=== PATIENT | female | born 1935 | race American Indian/Alaskan Native ===

== ENCOUNTER 2017-02-09 10:56 | Inpatient (IN) | payer MEDICARE ==
[2017-02-09 11:11] VITALS: BMI 22.8
[2017-02-09 12:43] LABS: BASO % 0.2 % (0.0-2.0); EOS % 0.1 % (0.0-4.0); HEMOGLOBIN 14.2 g/dL (11.0-16.0); LYMPH % 5.8 % (20.0-40.0); MEAN CELL VOLUME 91.1 fL (81.0-99.0); MEAN CORPUSCULAR HGB CONC 32.9 g/dL (33.0-37.0); MEAN PLATELET VOLUME 9.2 fL (7.2-11.7); MONO # 1.8 K/uL (0.0-0.8); MONO % 10.8 % (0.0-10.0); NEUT % 83.1 % (50.0-75.0); NRBC % 0.1 % (0.0-2.0); PLATELET COUNT 183 K/uL (130-400); RBC 4.73 Mil/uL (3.80-5.20); RED CELL DISTRIBUTION WIDTH 15.3 % (11.5-14.5); WHITE BLOOD COUNT 16.8 K/uL (4.8-10.8)
[2017-02-09 12:56] LABS: ALBUMIN 3.4 g/dL (3.5-5.0); CALCIUM 8.2 mg/dl (8.6-10.4)
[2017-02-09 13:01] LABS: BANDS 1 % (0-2); LYMPHOCYTE 4 % (20-40); MONOCYTE 11 % (0-10); NEUTROPHIL 84 % (50-75); TOTAL CELLS COUNTED 100
[2017-02-09 13:02] LABS: ANISOCYTOSIS SLIGHT; PLATELET ESTIMATE NORMAL (NORMAL); POIKILOCYTOSIS SLIGHT
[2017-02-09 13:03] LABS: LARGE PLATELETS PRESENT; OVALOCYTES SLIGHT
[2017-02-09 13:04] LABS: BURR CELLS SLIGHT; POLYCHROMIC SLIGHT
[2017-02-09 13:10] LABS: SQUAMOUS EPITHIAL 9 /hpf (0-5); URINE BACTERIA OCC (<OCC); URINE BILIRUBIN NEGATIVE (NEGATIVE); URINE BLOOD 1+ (NEGATIVE); URINE CLARITY Hazy (Clear); URINE COLOR Amber (YELLOW); URINE GLUCOSE (UA) NORMAL (Normal); URINE HYALINE CAST 0-2 /lpf (0-2); URINE LEUKOCYTE ESTERASE 2+ Leu/uL (Negative); URINE NITRATE NEGATIVE (NEGATIVE); URINE PROTEIN 2+ mg/dL (NEGATIVE); URINE UROBILINOGEN NORMAL mg/dL (0.2-1.0); WBC CLUMPS FEW /hpf
[2017-02-09] MEDS ORDERED: cefTRIAXone IV 1 gm in Dextros 50 ML IVPB ONE (14:11)
--- NOTE | 2017-02-09 14:33 | C.PDOC ---
History Of Present Illness Patient is an 81 y/o female who presents to the ED with a complaint of increasing weakness in the right leg for the past 3-4 days. Patient denies fall , trauma to area, fever, cough, CP, SOB, or recent travel. No other physical complaints at this time. Time Seen by Provider: 02/09/17 11:37 Chief Complaint (Nursing): Abnormal Skin Integrity History Per: Patient, Family History/Exam Limitations: no limitations Onset/Duration Of Symptoms: Days (3-4 days) Current Symptoms Are (Timing): Still Present Recent travel outside of the [place]: No Past Medical History Reviewed: Historical Data, Nursing Documentation, Vital Signs Vital Signs: Last Vital Signs Temp 99.5 F 02/09/17 15:59 Pulse 97 H 02/09/17 15:59 Resp 18 02/09/17 15:59 BP 95/60 L 02/09/17 15:59 Pulse Ox 99 02/09/17 15:59 - Medical History PMH: Arthritis, CHF, HTN Surgical History: No Surg Hx Family History: States: No Known Family Hx - Social History Hx Alcohol Use: No Hx Substance Use: No - Immunization History Hx Tetanus Toxoid Vaccination: No Hx Influenza Vaccination: No Hx Pneumococcal Vaccination: No Review Of Systems Constitutional: Positive for: Weakness (to right leg ). Negative for: Fever Cardiovascular: Negative for: Chest Pain Respiratory: Negative for: Cough, Shortness of Breath Physical Exam - Physical Exam Appears: Well, Non-toxic, No Acute Distress Skin: Normal Color, Warm, Dry Head: Atraumatic, Normacephalic Oral Mucosa: Dry Chest: Symmetrical Cardiovascular: Rhythm Irregular (irregularly irregular), No Murmur Respiratory: Normal Breath Sounds, No Rales, No Rhonchi, No Wheezing Gastrointestinal/Abdominal: Soft, No Tenderness, No Distention Extremity: Other (superficial healing ulcer to right leg; no sign of erythema or infection) Neurological/Psych: Oriented x3, Normal Speech, Normal Cognition ED Course And Treatment - Laboratory Results Result Diagrams: 02/09/17 12:40 02/09/17 12:40 ECG: Interpreted By Me, Viewed By Me ECG Rhythm: Atrial Fibrillation Rate From EC (bpm) O2 Sat by Pulse Oximetry: 100 (room air) Pulse Ox Interpretation: Normal - Physician Consult Information Time Consulting Physician Contacted: 13:42 Physician Contacted: Anil Knowles Outcome Of Conversation: agrees to admit patient for UTI and dehydration Disposition - Disposition Disposition: HOME/ ROUTINE Disposition Time: 13:15 Condition: STABLE - Clinical Impression Clinical Impression: UTI (urinary tract infection), Weakness - Scribe Statement The provider has reviewed the documentation as recorded by the Scribe Yumiko Herrmann All medical record entries made by the Scribe were at my direction and personally dictated by me. I have reviewed the chart and agree that the record accurately reflects my personal performance of the history, physical exam, medical decision making, and the department course for this patient. I have also personally directed, reviewed, and agree with the discharge instructions and disposition.
--- NOTE | 2017-02-09 15:27 | RAD ---
PROCEDURE: Radiographs of the right tibia and fibula. HISTORY: r/o fx COMPARISON: None available. TECHNIQUE: Frontal and lateral views obtained. FINDINGS: BONES: No fracture or destructive lesion. JOINT SPACES: Moderate osteoarthritic changes. Cartilage calcification noted at the knee and ankle joints. OTHER FINDINGS: Diffuse vascular calcification. IMPRESSION: No evidence of acute fracture or destructive bony lesion.
--- NOTE | 2017-02-09 16:12 | RAD ---
PROCEDURE: CHEST RADIOGRAPH, 1 VIEW HISTORY: r/o infiltrate COMPARISON: None available. FINDINGS: LUNGS: No evidence of focal infiltrate or consolidation in the lungs PLEURA: No pneumothorax or pleural fluid seen. CARDIOVASCULAR: Mild cardiomegaly is noted. Single wire left-sided pacer is seen in place OSSEOUS STRUCTURES: No significant abnormalities. VISUALIZED UPPER ABDOMEN: Normal. OTHER FINDINGS: None. IMPRESSION: No evidence of acute pulmonary disease. Mild cardiomegaly.
--- NOTE | 2017-02-09 16:57 | RAD ---
PROCEDURE: Radiographs of the pelvis. HISTORY: r/o fx COMPARISON: None. FINDINGS: BONES: Pelvic Bones: Unremarkable. Hips: Grossly unremarkable. JOINTS: Sacroiliac Joints: Unremarkable. Pubic Symphysis: Unremarkable. OTHER FINDINGS: None. IMPRESSION: No definite evidence of acute displaced fracture in the pelvis.
[2017-02-09] MEDS ORDERED: Pneumococcal 23-Valent Vaccine IM ONE (21:32)
[2017-02-09] MEDS ORDERED: Influenza Vaccine 60 mcg/0.5 mL SYR (4YR UP) IM ONE (21:33)
[2017-02-10] MEDS ORDERED: Ciprofloxacin 400mg/200ml D5W 400 MG/200 ML BAG IVPB SCH (10:00)
--- NOTE | 2017-02-10 12:59 | CP.PCM.CON ---
History of Present Illness - History of Present Illness History of Present Illness: Patient is an 81 y/o female who presents to the ED with a complaint of increasing weakness in the right leg for the past 3-4 days. Patient denies fall , trauma to area, fever, cough, CP, SOB, or recent travel. No other physical complaints at this time. has pain and decreased rom right leg - Medical History PMH: Arthritis, CHF, HTN Review of Systems - Review of Systems All systems: reviewed and no additional remarkable complaints except - Constitutional Constitutional: As Per HPI - EENT Eyes: absent: As Per HPI, Blind Spots, Blurred Vision, Change in Vision, Decreased Night Vision, Diplopia, Discharge, Dry Eye, Exophthalmos, Floaters, Irritation, Itchy Eyes, Loss of Peripheral Vision, Pain, Photophobia, Requires Corrective Lenses, Sees Flashes, Spots in Vision, Tunnel Vision, Other Visual Disturbances, Loss of Vision, Other Ears: absent: As Per HPI, Decreased Hearing, Ear Discharge, Ear Pain, Tinnitus, Abnormal Hearing, Disequilibrium, Dizziness, Other Nose/Mouth/Throat: absent: As Per HPI, Epistaxis, Nasal Congestion, Nasal Discharge, Nasal Obstruction, Nasal Trauma, Nose Pain, Post Nasal Drip, Sinus Pain, Sinus Pressure, Bleeding Gums, Change in Voice, Dental Pain, Dry Mouth, Dysphagia, Halitosis, Hoarsness, Lip Swelling, Mouth Lesions, Mouth Pain, Odynophagia, Sore Throat, Throat Swelling, Tongue Swelling, Facial Pain, Neck Pain, Neck Mass, Other - Breasts Breasts: absent: As Per HPI, Change in Shape, Mass, Pain, Nipple Discharge, Nipple Inversion, Skin Changes, Swelling, Other - Cardiovascular Cardiovascular: absent: As Per HPI, Acrocyanosis, Chest Pain, Chest Pain at Rest , Chest Pain with Activity, Claudication, Diaphoresis, Dyspnea, Dyspnea on Exertion, Edema, Irregular Heart Rhythm, Pain Radiating to Arm/Neck/Jaw, Leg Edema, Leg Ulcers, Lightheadedness, Orthopnea, Palpitations, Paroxysmal Nocturnal Dyspnea, Pedal Edema, Radiating Pain, Rapid Heart Rate, Slow Heart Rate, Syncope, Other - Respiratory Respiratory: absent: As Per HPI, Cough, Dyspnea, Hemoptysis, Dyspnea on Exertion , Wheezing, Snoring, Stridor, Pain on Inspiration, Chest Congestion, Excessive Mucous Production, Change in Mucous Color, Pain with Coughing, Other - Gastrointestinal Gastrointestinal: absent: As Per HPI, Abdominal Pain, Belching, Bloating, Change in Bowel Habits, Change in Stool Character, Coffee Ground Emesis, Constipation, Cramping, Diarrhea, Dyspepsia, Dysphagia, Early Satiety, Excessive Flatus, Fecal Incontinence, Heartburn, Hematemesis, Hematochezia, Loose Stools, Melena, Nausea, Odynophagia, Temesmus, Vomiting, Other - Genitourinary Genitourinary: absent: As Per HPI, Change in Urinary Stream, Difficulty Urinating, Dysuria, Flank Pain, Hematuria, Pyuria, Nocturia, Urinary Incontinence, Urinary Frequency, Urinary Hesitance, Urinary Urgency, Voiding Freq/Small Amts, Freq UTI, Hx Renal/Bladder Calculi, Hx /Renal Surgery, Bladder Distension, Other - Menstruation Menstruation: absent: As Per HPI, Amenorrhea, Amenorrhea/ Control, Currently Menstual, Cycle <21 Days, Cycle >35 Days, Cycle Variable, Menses 1-7 Days, Menses >/= 8 Days, Menses Variable, Cycle > 4 Weeks Between, No Menses for 6 Months, Heavy Menses, Light Menses, Normal Menses, Spotting Between Cycles , S/P Hysterectomy, Menopausal, Post Menopausal, Premenarche, Abnormal Vaginal Bleeding, Dysmenorrhea, Other - Musculoskeletal Musculoskeletal: As Per HPI, Abnormal Gait, Muscle Weakness, Stiffness - Integumentary Integumentary: absent: As Per HPI, Acne, Alopecia, Bleeding Lesions, Change in Hair, Change in Nails, Change in Pigmentation, Changing Lesions, Dry Skin, Erythema, Furuncle, Hirsutism, Lesions, New Lesions, Non-Healing Lesions, Photosensitivity, Pruritus, Rash, Skin Pain, Skin Ulcer, Sores, Striae, Swelling , Unusual Bruising, Wounds, Jaundice, Other - Neurological Neurological: absent: As Per HPI, Abnormal Gait, Abnormal Hearing, Abnormal Movements, Abnormal Speech, Behavioral Changes, Burning Sensations, Confusion, Convulsions, Disequilibrium, Dizziness, Numbness, Focal Weakness, Frequent Falls , Headaches, Lack of Coordination, Loss of Vision, Memory Loss, Paresthesias, Radicular Pain, Restless Legs, Sensory Deficit, Syncope, Tingling, Tremor, Vertigo, Weakness, Other Visual Disturbances, Other - Psychiatric Psychiatric: absent: As Per HPI, Abnormal Sleep Pattern, Anhedonia, Anxiety, Auditory Hallucinations, Behavioral Changes, Change in Appetite, Change in Libido, Confusion, Depression, Difficulty Concentrating, Hallucinations, Homicidal Ideation, Hopelessness, Irritability, Memory Loss, Mood Swings, Panic Attacks, Paranoia, Suicidal Ideation, Visual Hallucinations, Tactile Hallucinations, Other - Endocrine Endocrine: absent: As Per HPI, Change in Body Appearance, Change in Libido, Cold Intolorance, Deepening of Voice, Excessive Sweating, Fatigue, Flushing, Heat Intolorance, Increase in Ring/Shoe/Hat Size, Palpitations, Polydipsia, Polyphagia, Polyuria, Other - Hematologic/Lymphatic Hematologic: absent: As Per HPI, Easy Bleeding, Easy Bruising, Lymphadenopathy, Other Past Patient History - Past Medical History & Family History Past Medical History?: Yes - Past Social History Smoking Status: Never Smoked - CARDIAC Hx Congestive Heart Failure: Yes Hx Hypertension: Yes Hx Internal Defibrillator: Yes - PULMONARY Hx Respiratory Disorders: No - NEUROLOGICAL Hx Dementia: Yes - HEENT Hx Cataracts: Yes - RENAL Hx Chronic Kidney Disease: No - ENDOCRINE/METABOLIC Hx Endocrine Disorders: No - HEMATOLOGICAL/ONCOLOGICAL Hx Cancer: Yes (Breast 25 yrs ago) - INTEGUMENTARY Hx Dermatological Problems: No - MUSCULOSKELETAL/RHEUMATOLOGICAL Hx Arthritis: Yes Hx Falls: Yes Hx Fractures: Yes (leg 30 yrs ago) - GASTROINTESTINAL Hx Bowel Surgery: Yes (2006 bowel obstruction) - GENITOURINARY/GYNECOLOGICAL Hx Incontinence: Yes - PSYCHIATRIC Hx Substance Use: No - SURGICAL HISTORY Hx Open Heart Surgery: Yes (defibrillator implant) Other/Comment: bowel obstruction - ANESTHESIA Hx Anesthesia: Yes Hx Anesthesia Reactions: No Meds Allergies/Adverse Reactions: Allergies Allergy/AdvReac Type Severity Reaction Status Date / Time No Known Allergies Allergy Verified 02/09/17 11:04 - Medications Medications: Current Medications Carvedilol (Coreg) 3.125 mg PO BID [facility] Last Admin: 02/09/17 19:42 Dose: 3.125 mg Celecoxib (Celebrex) 100 mg PO DAILY PRN PRN Reason: Pain, moderate (4-7) Digoxin (Lanoxin) 0.125 mg PO DAILY@1800 [facility] Donepezil HCl (Aricept) 10 mg PO HS [facility] Last Admin: 02/09/17 22:25 Dose: 10 mg Furosemide (Lasix) 80 mg PO DAILY [facility] Cefepime HCl (Maxipime Iv 1 Gm Premix) 1 gm in 50 mls @ 100 mls/hr IVPB Q12H [facility] Losartan Potassium (Cozaar) 25 mg PO DAILY [facility] Rivaroxaban (Xarelto) 10 mg PO DAILY [facility] Last Admin: 02/10/17 11:00 Dose: 10 mg Physical Exam - Constitutional Appears: Non-toxic, Chronically Ill - Head Exam Head Exam: NORMOCEPHALIC - Eye Exam Eye Exam: PERRL. absent: Scleral icterus - ENT Exam ENT Exam: Mucous Membranes Dry - Neck Exam Neck exam: Negative for: Lymphadenopathy - Respiratory Exam Respiratory Exam: Decreased Breath Sounds, Clear to Auscultation Bilateral - Cardiovascular Exam Cardiovascular Exam: REGULAR RHYTHM, +S1, +S2 - GI/Abdominal Exam GI & Abdominal Exam: Diminished Bowel Sounds, Soft. absent: Tenderness - Rectal Exam Rectal Exam: Deferred - Exam Exam: NORMAL INSPECTION - Extremities Exam Extremities exam: Positive for: pedal pulses present. Negative for: calf tenderness, full ROM, normal inspection, pedal edema - Back Exam Back exam: absent: CVA tenderness (L), CVA tenderness (R) - Neurological Exam Neurological exam: Alert, CN II-XII Intact, Oriented x3, Reflexes Normal - Psychiatric Exam Psychiatric exam: Normal Mood Results - Vital Signs Recent Vital Signs: Last Vital Signs Temp 97.6 F 02/10/17 08:00 Pulse 68 02/10/17 08:00 Resp 20 02/10/17 08:00 BP 94/64 L 02/10/17 08:00 Pulse Ox 96 02/10/17 08:00 - Labs Result Diagrams: 02/09/17 12:40 02/09/17 12:40 Labs: Laboratory Results - last 24 hr 02/09/17 02/09/17 02/09/17 12:40 12:40 12:58 Neutrophils % (Manual) 84 H Band Neutrophils % 1 Lymphocytes % (Manual) 4 L Monocytes % (Manual) 11 H Platelet Estimate Normal Large Platelets Present Polychromasia Slight Poikilocytosis (manual Slight Anisocytosis (manual) Slight Ovalocytes Slight Gilberto Cells Slight Sodium 133 Potassium 5.2 Chloride 101 Carbon Dioxide 22 Anion Gap 14 BUN 25 H Creatinine 1.1 Est GFR ( Amer) 58 Est GFR (Non-Af Amer) 48 Random Glucose 103 Calcium 8.2 L Total Bilirubin 2.7 H AST 61 H ALT 22 Alkaline Phosphatase 57 Total Creatine Kinase 281 H Total Protein 6.8 Albumin 3.4 L Globulin 3.4 Albumin/Globulin Ratio 1.0 Urine Color Татьяна Urine Clarity Hazy Urine pH 5.0 Ur Specific [place] 1.017 Urine Protein 2+ H Urine Glucose (UA) Normal Urine Ketones Negative Urine Blood 1+ H Urine Nitrate Negative Urine Bilirubin Negative Urine Urobilinogen Normal Ur Leukocyte Esterase 2+ H Urine WBC (Auto) 30 H Urine RBC (Auto) 2 Urine WBC Clumps (Auto) Few H Ur Squamous Epith Cells 9 H Urine Bacteria Occ H Hyaline Casts 0-2 Assessment & Plan (1) UTI (urinary tract infection) Status: Acute (2) Weakness Status: Acute - Assessment and Plan (Free Text) Assessment: cont iv antibiotics dr lewis consult
[2017-02-10] MEDS: Cefepime IV 1 gm in Dextrose 1 GM/50 ML BAG IVPB SCH (14:00)
[2017-02-10] MEDS: Digoxin 125 mcg (0.125 mg) Tab PO SCH (17:58)
--- NOTE | 2017-02-10 22:22 | HP ---
HISTORY OF PRESENT ILLNESS: This is an 81-year-old female presented to the ER with the complaint of increasing weakness in the right leg for 3 to 4 days because of severe pain in the right leg, more so in the right knee. Denies any fall or trauma. She does have a history of congestive heart failure, dilated cardiomyopathy, ICD implantation, and being followed by myself and Dr. Luciano. She was in usual state of health until 2 days ago. MEDICATIONS: At home, include Xarelto 10 mg p.o. once a day, Coreg 3.125 twice a day, Cozaar 25 mg one a day, Lanoxin 0.125 one a day, Lasix 80 mg once a day. PERSONAL HISTORY: Does not smoke, does not drink. She used to drink alcohol in the past, but has not been drinking alcohol for more than 10 years. PAST MEDICAL HISTORY: History of CHF, otherwise unremarkable. ICD implantation. ALLERGIES: DENIED. FAMILY HISTORY: Negative for premature coronary artery disease. Father in his 80's because of CHF. REVIEW OF SYSTEMS: Generalized weakness as noted. Essentially bed to chair and wheelchair confined. Moves around with lot of difficulties in the house. No headache, no dizziness, no syncope, no TIAs, no CVAs. History of loss of memory. No chest pain. No ankle edema since she is on Lasix. Sleeps on 3 pillows. No cough. No hemoptysis. No hematemesis. No melena. For the past 2 days, has noted increasing frequency of urination. Found to have UTI in the ER. No history of depression. PHYSICAL EXAMINATION: GENERAL: An elderly female in no acute distress. Appears chronically sick. VITAL SIGNS: She is 5 feet 8 inches and weight is 150 pounds. Blood pressure is 95/60, heart rate of 98, respiratory rate of 20, afebrile. HEENT: No neck vein distension. Mouth, no exudate. NECK: Supple. ICD is noted in the left infraclavicular area. LUNGS: Decreased air entry in the bases, otherwise unremarkable. HEART: PMI is not localized. S1 and S2 is distant. Grade 2/6 early systolic murmur in mitral area. ABDOMEN: Soft. EXTREMITIES: Unremarkable except swelling of the right knee. Tenderness is noted on the motion of the right knee. No focal sign. LABORATORY DATA: UTI is noted. White count at 16,000. ASSESSMENT: An 81-year-old female with history of congestive cardiomyopathy, has presented with weakness of the right leg and right knee pain. Urinary tract infection and possible sepsis. PLAN: IV antibiotic, ID consultation. Also needs orthopedic consultation. Apparently, x-rays were said to be unremarkable. We will follow. Anil Knowles MD
[2017-02-11] MEDS: Cefepime IV 1 gm in Dextrose 1 GM/50 ML BAG IVPB SCH ×2 (01:02→12:52)
[2017-02-11 07:28] LABS: BASO % 0.3 % (0.0-2.0); EOS # 0.1 K/uL (0.0-0.7); EOS % 1.1 % (0.0-4.0); HEMOGLOBIN 12.6 g/dL (11.0-16.0); MEAN CELL VOLUME 90.4 fL (81.0-99.0); MEAN CORPUSCULAR HEMOGLOBIN 30.5 pg (27.0-31.0); MEAN CORPUSCULAR HGB CONC 33.8 g/dL (33.0-37.0); MEAN PLATELET VOLUME 9.1 fL (7.2-11.7); MONO % 11.5 % (0.0-10.0); NEUT # 6.8 K/uL (1.8-7.0); NEUT % 76.1 % (50.0-75.0); RBC 4.14 Mil/uL (3.80-5.20); RED CELL DISTRIBUTION WIDTH 14.9 % (11.5-14.5)
[2017-02-11 08:17] LABS: ALBUMIN 3.2 g/dL (3.5-5.0); CALCIUM 8.1 mg/dl (8.6-10.4); URIC ACID 9.1 mg/dL (2.2-7.5)
[2017-02-11] MEDS: Digoxin 125 mcg (0.125 mg) Tab PO SCH (18:49)
[2017-02-12] MEDS: Cefepime IV 1 gm in Dextrose 1 GM/50 ML BAG IVPB SCH ×2 (00:20→12:15)
--- NOTE | 2017-02-12 10:32 | VASCLAB ---
PROCEDURE: Lower Extremity Venous Duplex Exam. HISTORY: weakness PRIORS: None. TECHNIQUE: Bilateral common femoral, femoral, popliteal and posterior tibial, peroneal and great saphenous veins were evaluated. Flow was assessed with color Doppler, compressibility, assessment of phasic flow and augmentation response. Report prepared by Cyril Sales, KRISTEN, RVT FINDINGS: RIGHT: 1. Common Femoral Vein: 1.1. Compressibility - Fully compressible: Thrombus - None : Flow - Phasic: Augmentation -Normal: Reflux - None. 2. Femoral Vein: 2.1. Compressibility - Fully compressible: Thrombus - None : Flow - Phasic: Augmentation -Normal: Reflux - None. 3. Popliteal Vein: 3.1. Compressibility - Fully compressible: Thrombus - None : Flow - Phasic: Augmentation -Normal: Reflux - None. 4. Posterior Tibial Vein: 4.1. Compressibility - Fully compressible: Thrombus - None: Flow - Phasic: Augmentation -Normal: Reflux - None. 5. Peroneal Vein: 5.1. Compressibility - Fully compressible: Thrombus - None: Flow - Phasic: Augmentation -Normal: Reflux - None. 6. Great Saphenous Vein: 6.1. Compressibility - Fully compressible: Thrombus - None: Flow - Phasic: Augmentation - Normal: Reflux - None. LEFT: 1. Common Femoral Vein: 1.1. Compressibility - Fully compressible: Thrombus - None: Flow - Phasic: Augmentation -Normal: Reflux - None. 2. Femoral Vein: 2.1. Compressibility - Fully compressible: Thrombus - None: Flow - Phasic: Augmentation -Normal: Reflux - None. 3. Popliteal Vein: 3.1. Compressibility - Fully compressible: Thrombus - None : Flow - Phasic: Augmentation -Normal: Reflux - None. 4. Posterior Tibial Vein: 4.1. Compressibility - Fully compressible: Thrombus - None: Flow - Phasic: Augmentation -Normal: Reflux - None. 5. Peroneal Vein: 5.1. Compressibility - Fully compressible: Thrombus - None: Flow - Phasic: Augmentation -Normal: Reflux - None. 6. Great Saphenous Vein: 6.1. Compressibility - Fully compressible: Thrombus - None: Flow - Phasic: Augmentation - Normal: Reflux - None. OTHER FINDINGS: Right: None significant. Left: None significant. IMPRESSION: Right: No evidence of deep or superficial vein thrombosis of the right lower extremity. Normal valve function noted of the right side. Left: No evidence of deep or superficial vein thrombosis of the left lower extremity. Normal valve function noted of the left side.
--- NOTE | 2017-02-12 11:21 | CON ---
DATE: HISTORY OF PRESENT ILLNESS: The patient is admitted by Dr. Anil Knowles with a diagnoses of weakness and UTI. The patient is complaining of pain and painful limitation of range of motion of the right knee. She gives history of arthritis in the past. Recently, she had a fall about 2 days ago. Examination reveals 1+ swelling of the knee. The range of motion of the knee is painful in the extremes. The patient can do a straight leg raising test and can flex up to 100 degrees and tenderness over the medial, lateral and patellofemoral joints noted. Patellofemoral crepitus and tenderness noted. Range of motion of the knee is painful in the extremes. No evidence of ligamentous instability noted. X-rays of the right tibia and fibula including the right knee and ankle revealed evidence of degenerative joint disease with narrowing of the medial and lateral joint spaces. Some calcification over the superior pole of the patella seen. Arterial calcification is also seen. DIAGNOSES: Contusion of the knee, osteoarthritis of the knee. We will follow the patient. At this time, we will do the following. 1. Lidoderm patches to be applied up to 12 hours a day. 2. We will start physical therapy including ambulation, weightbearing, moist heat. We will follow the patient. If she develops any significant effusion, we will consider aspirating the knee. At this point, the patient has minimal effusion. Emile Diane MD
--- NOTE | 2017-02-12 11:49 | VASCLAB ---
STUDY DESCRIPTION: HISTORY: weakness PRIORS: None. TECHNIQUE: Pulse volume recording waveforms and segmental pressures of bilateral lower extremities at multiple levels were obtained. Ankle Brachial Indices (ABIs) were calculated. Report prepared by KRISTEN Tong, RVT RIGHT LOWER EXTREMITY: * Brachial artery: Pressure - 111 mmHg. * High thigh: Pressure - mmHg: Ratio - : PVR waveform - Reduced * Low thigh: Pressure - mmHg: Ratio - PVR waveform: Reduced * Calf: Pressure - mmHg: Ratio - PVR waveform: Reduced * Posterior tibial Artery: Pressure - 91 mmHg: Ratio - 0.82 PVR waveform: Reduced * Dorsalis pedis Artery: Pressure - 109 mmHg: Ratio - 0.98 PVR waveform: Reduced * Great toe: Pressure - mmHg: Ratio - PVR waveform: Ankle brachial index (JOSEF): 0.98 LEFT LOWER EXTREMITY: * Brachial artery: Pressure - 96 mmHg. * High thigh: Pressure - mmHg: Ratio - : PVR waveform - Pulsatile * Low thigh: Pressure - mmHg: Ratio - PVR waveform: Pulsatile * Calf: Pressure - mmHg: Ratio - PVR waveform: Pulsatile * Posterior tibial Artery: Pressure - 220 mmHg: Ratio - NC PVR waveform: Pulsatile * Dorsalis pedis Artery: Pressure - 220 mmHg: Ratio - NC PVR waveform: Pulsatile * Great toe: Pressure - mmHg: Ratio - PVR waveform: Ankle brachial index (JOSEF): NC OTHER FINDINGS: Right: Left: IMPRESSION: Right: There was no evidence of hemodynamically significant arterial insufficiency in the right lower extremity. Left: The ankle pressure index of the left lower extremity is non-diagnostic due to possible arterial wall calcifications.
--- NOTE | 2017-02-12 12:45 | CARD ---
APPROVED REPORT EKG Measurement Heart [id number] <Conclusion> Atrial fibrillation Left anterior fascicular block Possible Anterior infarct, age undetermined ST & T wave abnormality, consider lateral ischemia Abnormal ECG
--- NOTE | 2017-02-12 14:02 | CP.PCM.PN ---
Subjective - Date & Time of Evaluation Date of Evaluation: 02/12/17 Time of Evaluation: 14:00 - Subjective Subjective: pain in rt knee is better.afebrile. Objective - Vital Signs/Intake and Output Vital Signs (last 24 hours): Temp Pulse Resp BP Pulse Ox 98.8 F 72 20 115/74 97 02/12/17 07:47 02/12/17 07:47 02/12/17 07:47 02/12/17 09:14 02/12/17 07:47 Intake and Output: 02/12/17 02/12/17 06:59 18:59 Intake Total 960 450 Balance 960 450 - Medications Medications: Current Medications Carvedilol (Coreg) 3.125 mg PO BID [facility] Last Admin: 02/12/17 09:14 Dose: 3.125 mg Celecoxib (Celebrex) 100 mg PO DAILY PRN PRN Reason: Pain, moderate (4-7) Last Admin: 02/11/17 12:52 Dose: 100 mg Digoxin (Lanoxin) 0.125 mg PO DAILY@1800 [facility] Last Admin: 02/11/17 18:49 Dose: 0.125 mg Donepezil HCl (Aricept) 10 mg PO HS [facility] Last Admin: 02/11/17 22:04 Dose: 10 mg Furosemide (Lasix) 80 mg PO DAILY [facility] Last Admin: 02/12/17 09:14 Dose: 80 mg Cefepime HCl (Maxipime Iv 1 Gm Premix) 1 gm in 50 mls @ 100 mls/hr IVPB Q12H [facility] Last Admin: 02/12/17 12:15 Dose: 100 mls/hr Lidocaine (Lidoderm) 1 ea TD DAILY [facility] Losartan Potassium (Cozaar) 25 mg PO DAILY [facility] Last Admin: 02/12/17 09:14 Dose: 25 mg Rivaroxaban (Xarelto) 10 mg PO DAILY [facility] Last Admin: 02/12/17 09:14 Dose: 10 mg - Labs Labs: 02/11/17 07:22 02/11/17 07:22 - Constitutional Appears: No Acute Distress, Confused - Eye Exam Eye Exam: Normal appearance - Neck Exam Neck Exam: Normal Inspection - Respiratory Exam Respiratory Exam: Clear to Ausculation Bilateral - Cardiovascular Exam Cardiovascular Exam: Irregular Rhythm, Murmur - GI/Abdominal Exam GI & Abdominal Exam: Soft - Extremities Exam Extremities Exam: Joint Swelling. absent: Pedal Edema - Neurological Exam Neurological Exam: Alert Assessment and Plan - Assessment and Plan (Free Text) Assessment: seen by [email or web address],a.fib stable.
--- NOTE | 2017-02-12 15:49 | CP.PCM.PN ---
Subjective - Date & Time of Evaluation Date of Evaluation: 02/12/17 Time of Evaluation: 07:00 - Subjective Subjective: IV rx in progress right knee less painful no fever urine c/s noted Objective - Vital Signs/Intake and Output Vital Signs (last 24 hours): Temp Pulse Resp BP Pulse Ox 98.8 F 72 20 115/74 97 02/12/17 07:47 02/12/17 07:47 02/12/17 07:47 02/12/17 14:25 02/12/17 07:47 Intake and Output: 02/12/17 02/12/17 06:59 18:59 Intake Total 960 450 Balance 960 450 - Medications Medications: Current Medications Carvedilol (Coreg) 3.125 mg PO BID [facility] Last Admin: 02/12/17 09:14 Dose: 3.125 mg Celecoxib (Celebrex) 100 mg PO DAILY PRN PRN Reason: Pain, moderate (4-7) Last Admin: 02/11/17 12:52 Dose: 100 mg Digoxin (Lanoxin) 0.125 mg PO DAILY@1800 [facility] Last Admin: 02/11/17 18:49 Dose: 0.125 mg Donepezil HCl (Aricept) 10 mg PO HS [facility] Last Admin: 02/11/17 22:04 Dose: 10 mg Furosemide (Lasix) 80 mg PO DAILY [facility] Last Admin: 02/12/17 09:14 Dose: 80 mg Cefepime HCl (Maxipime Iv 1 Gm Premix) 1 gm in 50 mls @ 100 mls/hr IVPB Q12H [facility] Last Admin: 02/12/17 12:15 Dose: 100 mls/hr Lidocaine (Lidoderm) 1 ea TD DAILY [facility] Losartan Potassium (Cozaar) 25 mg PO DAILY [facility] Last Admin: 02/12/17 09:14 Dose: 25 mg Rivaroxaban (Xarelto) 10 mg PO DAILY [facility] Last Admin: 02/12/17 09:14 Dose: 10 mg - Labs Labs: 02/11/17 07:22 02/11/17 07:22 - Constitutional Appears: Non-toxic - Head Exam Head Exam: NORMOCEPHALIC - Eye Exam Eye Exam: EOMI Pupil Exam: NORMAL ACCOMODATION - ENT Exam ENT Exam: Mucous Membranes Dry - Neck Exam Neck Exam: absent: Lymphadenopathy - Respiratory Exam Respiratory Exam: Decreased Breath Sounds - Cardiovascular Exam Cardiovascular Exam: REGULAR RHYTHM, +S1, +S2 - GI/Abdominal Exam GI & Abdominal Exam: Distended, Soft. absent: Tenderness - Rectal Exam Rectal Exam: Deferred - Exam Exam: NORMAL INSPECTION - Extremities Exam Extremities Exam: Full ROM - Back Exam Back Exam: absent: CVA tenderness (L), CVA tenderness (R) - Neurological Exam Neurological Exam: Alert, Altered, Awake, CN II-XII Intact - Skin Skin Exam: Dry Assessment and Plan (1) UTI (urinary tract infection) Status: Acute (2) Weakness Status: Acute
[2017-02-12] MEDS: Digoxin 125 mcg (0.125 mg) Tab PO SCH (18:09)
[2017-02-13] MEDS: Cefepime IV 1 gm in Dextrose 1 GM/50 ML BAG IVPB SCH ×2 (00:42→13:47)
--- NOTE | 2017-02-13 11:04 | CP.PCM.PN ---
Subjective - Date & Time of Evaluation Date of Evaluation: 02/13/17 Time of Evaluation: 11:01 - Subjective Subjective: Patient states she thinks her knee feels a little better. Patient confused. Review of Systems - Review of Systems Review of Systems: pt confused Objective - Vital Signs/Intake and Output Vital Signs (last 24 hours): Temp Pulse Resp BP Pulse Ox 98.7 F 60 20 105/65 95 02/13/17 08:00 02/13/17 10:34 02/13/17 08:00 02/13/17 10:36 02/13/17 08:00 Intake and Output: 02/13/17 02/13/17 06:59 18:59 Intake Total 1000 Balance 1000 - Medications Medications: Current Medications Carvedilol (Coreg) 3.125 mg PO BID [facility] Last Admin: 02/13/17 10:36 Dose: 3.125 mg Celecoxib (Celebrex) 100 mg PO DAILY PRN PRN Reason: Pain, moderate (4-7) Last Admin: 02/11/17 12:52 Dose: 100 mg Digoxin (Lanoxin) 0.125 mg PO DAILY@1800 [facility] Last Admin: 02/12/17 18:09 Dose: 0.125 mg Donepezil HCl (Aricept) 10 mg PO HS [facility] Last Admin: 02/12/17 21:49 Dose: 10 mg Furosemide (Lasix) 80 mg PO DAILY [facility] Last Admin: 02/13/17 10:36 Dose: 80 mg Cefepime HCl (Maxipime Iv 1 Gm Premix) 1 gm in 50 mls @ 100 mls/hr IVPB Q12H [facility] Last Admin: 02/13/17 00:42 Dose: 100 mls/hr Lidocaine (Lidoderm) 1 ea TD DAILY [facility] Losartan Potassium (Cozaar) 25 mg PO DAILY [facility] Last Admin: 02/13/17 10:36 Dose: 25 mg Rivaroxaban (Xarelto) 10 mg PO DAILY [facility] Last Admin: 02/13/17 10:36 Dose: 10 mg - Labs Labs: 02/11/17 07:22 02/11/17 07:22 - Constitutional Appears: No Acute Distress - Head Exam Head Exam: ATRAUMATIC - Respiratory Exam Respiratory Exam: NORMAL BREATHING PATTERN - Extremities Exam Additional comments: right knee: small effusion, not warm, no erythema, s/p fall calves soft NT neg homans +dp/pt pulses - Neurological Exam Neurological Exam: Alert, Awake Neuro motor strength exam: Right Lower Extremity: 5 (+ROM ankle/toes, knee ROM 30-100 with pain at end ranges) - Skin Skin Exam: Dry, Intact, Warm Additional comments: ecchymosis to anterior and lateral knee Assessment and Plan (1) Primary osteoarthritis of right knee Assessment & Plan: no clinical suspicion of septic arthritis at this time f/u appreciated, improving d/w Dr. Diane, will continue to monitor at this time PT/OT VTE proph Status: Chronic Radiology Interpretation - Radiology Interpretation #2 Interpretation: atient Name / ID : DELILAH MENDOSA M / [id number] Exam Date : 02/12/2017 09:16:10 ( Approved ) Study Comment : Sex / Age : F / 81Y Creator : Jenny Sage Dictator : Jenny Sage Merchandising Team Lead : Logistics Associate : Deon Ram MD Approver2 : Report Date : 02/12/2017 10:18:58 My Comment : PROCEDURE: Lower Extremity Venous Duplex Exam. HISTORY: weakness PRIORS: None. TECHNIQUE: Bilateral common femoral, femoral, popliteal and posterior tibial, peroneal and great saphenous veins were evaluated. Flow was assessed with color Doppler, compressibility, assessment of phasic flow and augmentation response. Report prepared by Cyril Sales, KRISTEN, RVT FINDINGS: RIGHT: 1. Common Femoral Vein: 1.1. Compressibility - Fully compressible: Thrombus - None : Flow - Phasic: Augmentation -Normal: Reflux - None. 2. Femoral Vein: 2.1. Compressibility - Fully compressible: Thrombus - None : Flow - Phasic: Augmentation -Normal: Reflux - None. 3. Popliteal Vein: 3.1. Compressibility - Fully compressible: Thrombus - None : Flow - Phasic: Augmentation -Normal: Reflux - None. 4. Posterior Tibial Vein: 4.1. Compressibility - Fully compressible: Thrombus - None: Flow - Phasic: Augmentation -Normal: Reflux - None. 5. Peroneal Vein: 5.1. Compressibility - Fully compressible: Thrombus - None: Flow - Phasic: Augmentation -Normal: Reflux - None. 6. Great Saphenous Vein: 6.1. Compressibility - Fully compressible: Thrombus - None: Flow - Phasic: Augmentation - Normal: Reflux - None. LEFT: 1. Common Femoral Vein: 1.1. Compressibility - Fully compressible: Thrombus - None: Flow - Phasic: Augmentation -Normal: Reflux - None. 2. Femoral Vein: 2.1. Compressibility - Fully compressible: Thrombus - None: Flow - Phasic: Augmentation -Normal: Reflux - None. 3. Popliteal Vein: 3.1. Compressibility - Fully compressible: Thrombus - None : Flow - Phasic: Augmentation -Normal: Reflux - None. 4. Posterior Tibial Vein: 4.1. Compressibility - Fully compressible: Thrombus - None: Flow - Phasic: Augmentation -Normal: Reflux - None. 5. Peroneal Vein: 5.1. Compressibility - Fully compressible: Thrombus - None: Flow - Phasic: Augmentation -Normal: Reflux - None. 6. Great Saphenous Vein: 6.1. Compressibility - Fully compressible: Thrombus - None: Flow - Phasic: Augmentation - Normal: Reflux - None. OTHER FINDINGS: Right: None significant. Left: None significant. IMPRESSION: Right: No evidence of deep or superficial vein thrombosis of the right lower extremity. Normal valve function noted of the right side. Left: No evidence of deep or superficial vein thrombosis of the left lower extremity. Normal valve function noted of the left side. Accession No. : [id number] Patient Name / ID : DELILAH Concepcion / [id number] Exam Date : 02/09/2017 12:04:08 ( Approved ) Study Comment : Sex / Age : F / 81Y Creator : Meredith Georges MD Dictator : Meredith Georges MD Merchandising Team Lead : Logistics Associate : Meerdith Georges MD Approver2 : Report Date : 02/09/2017 16:56:01 My Comment : PROCEDURE: Radiographs of the pelvis. HISTORY: r/o fx COMPARISON: None. FINDINGS: BONES: Pelvic Bones: Unremarkable. Hips: Grossly unremarkable. JOINTS: Sacroiliac Joints: Unremarkable. Pubic Symphysis: Unremarkable. OTHER FINDINGS: None. IMPRESSION: No definite evidence of acute displaced fracture in the pelvis. Patient Name / ID : DELILAH MENDOSA M / [id number] Exam Date : 02/09/2017 12:03:42 ( Approved ) Study Comment : Sex / Age : F / 81Y Creator : Meredith Georges MD Dictator : Meredith Georges MD Merchandising Team Lead : Logistics Associate : Meredith Georges MD Approver2 : Report Date : 02/09/2017 15:26:21 My Comment : PROCEDURE: Radiographs of the right tibia and fibula. HISTORY: r/o fx COMPARISON: None available. TECHNIQUE: Frontal and lateral views obtained. FINDINGS: BONES: No fracture or destructive lesion. JOINT SPACES: Moderate osteoarthritic changes. Cartilage calcification noted at the knee and ankle joints. OTHER FINDINGS: Diffuse vascular calcification. IMPRESSION: No evidence of acute fracture or destructive bony lesion.
--- NOTE | 2017-02-13 12:00 | CARD ---
APPROVED REPORT EXAM: Two-dimensional and M-mode echocardiogram with Doppler and color Doppler. Other Information Quality : GoodRhythm : INDICATION Dyspnea Chest Pain Syncope Congestive Heart Failure Palpitations 2D DIMENSIONS IVSd1.1 (0.7-1.1cm)LVDd5.3 (3.9-5.9cm) PWd1.1 (0.7-1.1cm)LVDs4.9 (2.5-4.0cm) FS (%) 7.6 %LVEF (%)30.0 (>50%) M-Mode DIMENSIONS Left Atrium (MM)4.32 (2.5-4.0cm)Aortic Root3.42 (2.2-3.7cm) Mitral Valve MV E Mdhqqvvk44.6cm/sMV A Hnrdavql72.5cm/sMV [id number] E/A ratio2.0MVA (PHT)0.31cm2 TDI E/Lateral E'0.0E/Medial E'0.0 Tricuspid Valve TR Peak Pwcxqjvo115yq/sTR Peak Gr.[id number] LEFT VENTRICLE The left ventricle is normal size. There is mild concentric left ventricular hypertrophy. The Ejection Fraction is 25-30%. The left atrial pressure is mildly elevated. RIGHT VENTRICLE The right ventricle is normal size. Systolic function is mildly reduced. ATRIA The left atrium is mildly dilated. The right atrium is mildly dilated. The interatrial septum is intact with no evidence for an atrial septal defect. AORTIC VALVE The aortic valve is trileaflet. There is mild to moderate aortic regurgitation. MITRAL VALVE The mitral valve is normal in structure. Mitral regurgitation is mild to moderate. TRICUSPID VALVE The tricuspid valve is normal in structure. There is moderate tricuspid regurgitation. Right ventricular systolic pressure is estimated at 54 mmHg. There is moderate pulmonary hypertension. PULMONIC VALVE There is mild pulmonic valvular regurgitation. GREAT VESSELS The aortic root is normal in size. The IVC is dilated. PERICARDIAL EFFUSION minimal posterior pericardial effusion is noted. <Conclusion> The left ventricle is normal size. There is mild concentric left ventricular hypertrophy. The Ejection Fraction is 25-30%. The left atrial pressure is mildly elevated. The left atrium is mildly dilated. The right atrium is mildly dilated. There is mild to moderate aortic regurgitation. Mitral regurgitation is mild to moderate. There is moderate tricuspid regurgitation. Right ventricular systolic pressure is estimated at 54 mmHg. There is moderate pulmonary hypertension.
--- NOTE | 2017-02-13 13:59 | DS ---
TRANSFER SUMMARY TO REHABILITATION The patient will be transferred to rehab hopefully today. An 81-year-old female who was brought in with possible syncope. The patient also had pain in the right knee, arthritis changes were noted. The patient was seen by orthopedic, Dr. Diane. Physical therapy has been started. She was found to have a UTI in the emergency room and antibiotic has been started, Maxipime. She was seen and followed by Dr. Naik. At this point, she is stable, will be discharge. Her heart failure is stabilized. Echocardiogram had shown EF of 20% to 25%. MR, TR and pulmonary hypertension. She has an ICD. At this point, we will continue with [facility]. Care of plan was also explained to the patient's son who was at the bedside. FINAL DIAGNOSES: Syncope, urinary tract infection, congestive heart failure. The patient also has chronic atrial fibrillation, on Xarelto. Dr. Luciano is an Electrophysiology physician following her. Anil Knowles MD
--- NOTE | 2017-02-13 14:42 | CP.PCM.PN ---
Subjective - Date & Time of Evaluation Date of Evaluation: 02/13/17 Time of Evaluation: 14:40 - Subjective Subjective: PT SEEN BY DR. HUBBARD TODAY AND CLEARED FOR D/C TO [facility] IF CLEARED BY ID. I DISCUSSED WITH DR. CASE AND PT CAN BE D/C ON AUGMENTIN 875 MG PO BID X5 DAYS-- -WILL START 02/14/17 AND LAST DOSE TO BE GIVEN ON 02/18/17. SW TO MAKE ARRANGEMENTS FOR PT TO BE TRANSPORTED TO [facility] IN [place]. NO FURTHER ORDERS. Objective - Vital Signs/Intake and Output Vital Signs (last 24 hours): Temp Pulse Resp BP Pulse Ox 98.7 F 60 20 105/65 95 02/13/17 08:00 02/13/17 10:34 02/13/17 08:00 02/13/17 10:36 02/13/17 08:00 Intake and Output: 02/13/17 02/13/17 06:59 18:59 Intake Total 1000 Balance 1000 - Medications Medications: Current Medications Carvedilol (Coreg) 3.125 mg PO BID [facility] Last Admin: 02/13/17 10:36 Dose: 3.125 mg Celecoxib (Celebrex) 100 mg PO DAILY PRN PRN Reason: Pain, moderate (4-7) Last Admin: 02/11/17 12:52 Dose: 100 mg Digoxin (Lanoxin) 0.125 mg PO DAILY@1800 [facility] Last Admin: 02/12/17 18:09 Dose: 0.125 mg Donepezil HCl (Aricept) 10 mg PO HS [facility] Last Admin: 02/12/17 21:49 Dose: 10 mg Furosemide (Lasix) 80 mg PO DAILY [facility] Last Admin: 02/13/17 10:36 Dose: 80 mg Cefepime HCl (Maxipime Iv 1 Gm Premix) 1 gm in 50 mls @ 100 mls/hr IVPB Q12H [facility] Last Admin: 02/13/17 13:47 Dose: 100 mls/hr Lidocaine (Lidoderm) 1 ea TD DAILY [facility] Losartan Potassium (Cozaar) 25 mg PO DAILY [facility] Last Admin: 02/13/17 10:36 Dose: 25 mg Rivaroxaban (Xarelto) 10 mg PO DAILY [facility] Last Admin: 02/13/17 10:36 Dose: 10 mg - Labs Labs: 02/11/17 07:22 02/11/17 07:22
[2017-02-13] MEDS: Digoxin 125 mcg (0.125 mg) Tab PO SCH (17:50)
[2017-02-13] MEDS: Amoxicillin-Clav 875-125 mg Tab PO SCH (21:12)
[2017-02-14] MEDS: Amoxicillin-Clav 875-125 mg Tab PO SCH ×2 (11:12→21:57)
[2017-02-14] MEDS: Lidocaine 5% Patch TD SCH (11:17)
[2017-02-14] MEDS: Digoxin 125 mcg (0.125 mg) Tab PO SCH (17:20)
[2017-02-15] MEDS: Amoxicillin-Clav 875-125 mg Tab PO SCH ×2 (10:57→21:24)
[2017-02-15] MEDS: Lidocaine 5% Patch TD SCH (10:58)
--- NOTE | 2017-02-15 14:05 | CP.PCM.PN ---
Subjective - Date & Time of Evaluation Date of Evaluation: 02/15/17 Time of Evaluation: 14:04 - Subjective Subjective: PT HAS BEEN CLEARED FOR [facility] [place] SINCE 02/13. PER SW AND CM STILL PENDING EAR PASS. THEY ARE HOPING TO RECEIVE IT TODAY. ONCE THIS PASS COMES IN THEN PT CAN BE D/C TO [facility]. STILL ON ABX PO FOR INFECTION. NO FURTHER ORDERS. Objective - Vital Signs/Intake and Output Vital Signs (last 24 hours): Temp Pulse Resp BP Pulse Ox 97 F L 78 20 121/71 98 02/14/17 15:15 02/15/17 11:30 02/14/17 15:15 02/15/17 10:57 02/15/17 11:30 Intake and Output: 02/15/17 02/15/17 06:59 18:59 Intake Total 600 Output Total 2 Balance 598 - Medications Medications: Current Medications Amoxicillin/Clavulanate Potassium (Augmentin 875 Mg-125 Mg Tab) 1 tab PO Q12H [facility] Stop: 02/18/17 22:01 Last Admin: 02/15/17 10:57 Dose: 1 tab Carvedilol (Coreg) 3.125 mg PO BID [facility] Last Admin: 02/15/17 10:57 Dose: 3.125 mg Celecoxib (Celebrex) 100 mg PO DAILY PRN PRN Reason: Pain, moderate (4-7) Last Admin: 02/15/17 10:58 Dose: 100 mg Digoxin (Lanoxin) 0.125 mg PO DAILY@1800 [facility] Last Admin: 02/14/17 17:20 Dose: Not Given Donepezil HCl (Aricept) 10 mg PO HS [facility] Last Admin: 02/14/17 21:51 Dose: 10 mg Furosemide (Lasix) 80 mg PO DAILY [facility] Last Admin: 02/15/17 10:57 Dose: 80 mg Lidocaine (Lidoderm) 1 ea TD DAILY [facility] Last Admin: 02/15/17 10:58 Dose: 1 ea Losartan Potassium (Cozaar) 25 mg PO DAILY [facility] Last Admin: 02/15/17 10:57 Dose: 25 mg Rivaroxaban (Xarelto) 10 mg PO DAILY [facility] Last Admin: 02/15/17 10:58 Dose: 10 mg - Labs Labs: 02/11/17 07:22 02/11/17 07:22
[2017-02-15] MEDS: Digoxin 125 mcg (0.125 mg) Tab PO SCH (18:01)
[2017-02-16] MEDS: Amoxicillin-Clav 875-125 mg Tab PO SCH ×2 (10:10→21:51)
[2017-02-16] MEDS: Lidocaine 5% Patch TD SCH ×2 (10:10→16:02)
[2017-02-16] MEDS: Digoxin 125 mcg (0.125 mg) Tab PO SCH (18:19)
[2017-02-17 08:11] LABS: BASO # 0.1 K/uL (0.0-0.2); BASO % 0.5 % (0.0-2.0); EOS # 0.1 K/uL (0.0-0.7); EOS % 0.8 % (0.0-4.0); HEMOGLOBIN 13.7 g/dL (11.0-16.0); LYMPH # 1.2 K/uL (1.0-4.3); LYMPH % 11.2 % (20.0-40.0); MEAN CELL VOLUME 89.8 fL (81.0-99.0); MEAN CORPUSCULAR HEMOGLOBIN 30.2 pg (27.0-31.0); MEAN CORPUSCULAR HGB CONC 33.6 g/dL (33.0-37.0); MEAN PLATELET VOLUME 8.4 fL (7.2-11.7); MONO # 1.4 K/uL (0.0-0.8); MONO % 12.9 % (0.0-10.0); NEUT # 7.9 K/uL (1.8-7.0); NEUT % 74.6 % (50.0-75.0); RBC 4.53 Mil/uL (3.80-5.20); RED CELL DISTRIBUTION WIDTH 14.9 % (11.5-14.5); WHITE BLOOD COUNT 10.7 K/uL (4.8-10.8)
[2017-02-17 08:29] LABS: CALCIUM 8.2 mg/dl (8.6-10.4)
[2017-02-17 08:38] LABS: ALB/GLOB RATIO 0.9 (1.0-2.1)
[2017-02-17] MEDS: Amoxicillin-Clav 875-125 mg Tab PO SCH ×2 (11:16→21:14)
[2017-02-17] MEDS: Lidocaine 5% Patch TD SCH ×2 (11:17→13:13)
--- NOTE | 2017-02-17 15:47 | CP.PCM.PN ---
Subjective - Date & Time of Evaluation Date of Evaluation: 02/17/17 Time of Evaluation: 15:45 - Subjective Subjective: ok.still waiting for bed at rehab. Objective - Vital Signs/Intake and Output Vital Signs (last 24 hours): Temp Pulse Resp BP Pulse Ox 97.7 F 67 20 109/53 L 96 02/17/17 08:00 02/17/17 08:00 02/17/17 08:00 02/17/17 11:16 02/17/17 08:00 Intake and Output: 02/17/17 02/17/17 06:59 18:59 Intake Total 240 Balance 240 - Medications Medications: Current Medications Amoxicillin/Clavulanate Potassium (Augmentin 875 Mg-125 Mg Tab) 1 tab PO Q12H [facility] Stop: 02/18/17 22:01 Last Admin: 02/17/17 11:16 Dose: 1 tab Carvedilol (Coreg) 3.125 mg PO BID [facility] Last Admin: 02/17/17 11:15 Dose: 3.125 mg Celecoxib (Celebrex) 100 mg PO DAILY PRN PRN Reason: Pain, moderate (4-7) Last Admin: 02/17/17 11:16 Dose: 100 mg Digoxin (Lanoxin) 0.125 mg PO DAILY@1800 [facility] Last Admin: 02/16/17 18:19 Dose: Not Given Donepezil HCl (Aricept) 10 mg PO HS [facility] Last Admin: 02/16/17 21:51 Dose: 10 mg Furosemide (Lasix) 80 mg PO DAILY [facility] Last Admin: 02/17/17 11:16 Dose: 80 mg Lidocaine (Lidoderm) 1 ea TD DAILY [facility] Last Admin: 02/17/17 11:17 Dose: 1 ea Lidocaine (Lidoderm) 1 ea TD DAILY [facility] Last Admin: 02/17/17 13:13 Dose: 1 ea Losartan Potassium (Cozaar) 25 mg PO DAILY [facility] Last Admin: 02/17/17 11:15 Dose: 25 mg Rivaroxaban (Xarelto) 10 mg PO DAILY [facility] Last Admin: 02/17/17 11:16 Dose: 10 mg - Labs Labs: 02/17/17 08:04 02/17/17 08:04 - Constitutional Appears: Chronically Ill - Head Exam Head Exam: NORMOCEPHALIC - Eye Exam Eye Exam: Normal appearance - Respiratory Exam Respiratory Exam: Clear to Ausculation Bilateral - Cardiovascular Exam Cardiovascular Exam: Irregular Rhythm - GI/Abdominal Exam GI & Abdominal Exam: Soft - Extremities Exam Extremities Exam: absent: Pedal Edema - Neurological Exam Neurological Exam: Alert Assessment and Plan - Assessment and Plan (Free Text) Assessment: chf,[email or web address].uti.
[2017-02-17 17:18] VITALS: PULSE 84
[2017-02-17] MEDS: Digoxin 125 mcg (0.125 mg) Tab PO SCH (17:18)
[2017-02-18 00:42] VITALS: RESP 20
[2017-02-18] MEDS: Lidocaine 5% Patch TD SCH ×2 (10:10→10:11)
[2017-02-18] MEDS: Amoxicillin-Clav 875-125 mg Tab PO SCH (10:20)
--- NOTE | 2017-02-18 13:15 | CP.PCM.PN ---
Subjective - Date & Time of Evaluation Date of Evaluation: 02/18/17 Time of Evaluation: 13:12 - Subjective Subjective: Patient states her knee is feeling better. Complaining of pain in both knees with PT. No new complaints. Review of Systems - Review of Systems Systems not reviewed;Unavailable: Dementia All systems: reviewed and no additional remarkable complaints except - Constitutional Additional comments: no fever/chills - Cardiovascular Cardiovascular: UNREMARKABLE - Respiratory Respiratory: UNREMARKABLE - Gastrointestinal Gastrointestinal: UNREMARKABLE - Musculoskeletal Musculoskeletal: As Par HPI - Integumentary Integumentary: UNREMARKABLE - Neurological Neurological: UNREMARKABLE - Hematologic/Lymphatic Hematologic: UNREMARKABLE Objective - Vital Signs/Intake and Output Vital Signs (last 24 hours): Temp Pulse Resp BP Pulse Ox 97.4 F L 76 20 98/62 L 95 02/18/17 08:19 02/18/17 08:19 02/18/17 08:19 02/18/17 10:21 02/18/17 08:19 Intake and Output: 02/18/17 02/18/17 06:59 18:59 Intake Total 300 Balance 300 - Medications Medications: Current Medications Amoxicillin/Clavulanate Potassium (Augmentin 875 Mg-125 Mg Tab) 1 tab PO Q12H [facility] Stop: 02/18/17 22:01 Last Admin: 02/18/17 10:20 Dose: 1 tab Carvedilol (Coreg) 3.125 mg PO BID [facility] Last Admin: 02/18/17 10:20 Dose: 3.125 mg Celecoxib (Celebrex) 100 mg PO DAILY PRN PRN Reason: Pain, moderate (4-7) Last Admin: 02/17/17 11:16 Dose: 100 mg Digoxin (Lanoxin) 0.125 mg PO DAILY@1800 [facility] Last Admin: 02/17/17 17:18 Dose: 0.125 mg Donepezil HCl (Aricept) 10 mg PO HS [facility] Last Admin: 02/17/17 21:14 Dose: 10 mg Furosemide (Lasix) 80 mg PO DAILY [facility] Last Admin: 02/18/17 10:21 Dose: Not Given Lidocaine (Lidoderm) 1 ea TD DAILY [facility] Last Admin: 02/18/17 10:10 Dose: 1 ea Lidocaine (Lidoderm) 1 ea TD DAILY [facility] Last Admin: 02/18/17 10:11 Dose: 1 ea Losartan Potassium (Cozaar) 25 mg PO DAILY [facility] Last Admin: 02/18/17 10:20 Dose: 25 mg Rivaroxaban (Xarelto) 10 mg PO DAILY [facility] Last Admin: 02/18/17 10:19 Dose: 10 mg - Labs Labs: 02/17/17 08:04 02/17/17 08:04 - Constitutional Appears: Well, No Acute Distress - Head Exam Head Exam: ATRAUMATIC - Respiratory Exam Respiratory Exam: NORMAL BREATHING PATTERN - Extremities Exam Additional comments: no effusion, no erythema sensation itnact calves soft NT neg homans - Neurological Exam Neurological Exam: Alert, Awake Neuro motor strength exam: Right Lower Extremity: 5 (moves knee through full ROM with minimal pain. +ROM ankle/toes) - Psychiatric Exam Psychiatric exam: Normal Affect, Normal Mood - Skin Skin Exam: Dry, Intact, Normal Color, Warm Assessment and Plan (1) Primary osteoarthritis of right knee Assessment & Plan: exacerbation improving PT/OT VTE proph awaiting rehab placement WBAT RLE d/w Dr. Diane, agrees with above Status: Chronic
--- NOTE | 2017-02-18 13:59 | CP.PCM.PN ---
Subjective - Date & Time of Evaluation Date of Evaluation: 02/18/17 Time of Evaluation: 13:58 - Subjective Subjective: PT HAS BEEN CLEARED FOR D/C SINCE LAST WEEK. WE HAVE BEEN WAITING FOR [facility]-PASS PER SW. PT SET UP FOR D/C TODAY. NEW D/C ORDER PLACED BY [employer]. PT AND FAMILY AWARE OF PLAN. SW TO ARRANGE TRANSPORTATION TO [facility]. NO FURTHER ORDERS AT THIS TIME. Objective - Vital Signs/Intake and Output Vital Signs (last 24 hours): Temp Pulse Resp BP Pulse Ox 97.4 F L 76 20 98/62 L 95 02/18/17 08:19 02/18/17 08:19 02/18/17 08:19 02/18/17 10:21 02/18/17 08:19 Intake and Output: 02/18/17 02/18/17 06:59 18:59 Intake Total 300 Balance 300 - Medications Medications: Current Medications Amoxicillin/Clavulanate Potassium (Augmentin 875 Mg-125 Mg Tab) 1 tab PO Q12H [facility] Stop: 02/18/17 22:01 Last Admin: 02/18/17 10:20 Dose: 1 tab Carvedilol (Coreg) 3.125 mg PO BID [facility] Last Admin: 02/18/17 10:20 Dose: 3.125 mg Celecoxib (Celebrex) 100 mg PO DAILY PRN PRN Reason: Pain, moderate (4-7) Last Admin: 02/17/17 11:16 Dose: 100 mg Digoxin (Lanoxin) 0.125 mg PO DAILY@1800 [facility] Last Admin: 02/17/17 17:18 Dose: 0.125 mg Donepezil HCl (Aricept) 10 mg PO HS [facility] Last Admin: 02/17/17 21:14 Dose: 10 mg Furosemide (Lasix) 80 mg PO DAILY [facility] Last Admin: 02/18/17 10:21 Dose: Not Given Lidocaine (Lidoderm) 1 ea TD DAILY [facility] Last Admin: 02/18/17 10:10 Dose: 1 ea Lidocaine (Lidoderm) 1 ea TD DAILY [facility] Last Admin: 02/18/17 10:11 Dose: 1 ea Losartan Potassium (Cozaar) 25 mg PO DAILY [facility] Last Admin: 02/18/17 10:20 Dose: 25 mg Rivaroxaban (Xarelto) 10 mg PO DAILY [facility] Last Admin: 02/18/17 10:19 Dose: 10 mg - Labs Labs: 02/17/17 08:04 02/17/17 08:04
[2017-02-18 17:10] VITALS: BP 101/65; PULSE 64; TEMP 97.5; O2SAT 97
--- NOTE | 2017-02-19 10:31 | DS ---
ADDENDUM This is the addendum to the previously dictated discharge summary earlier, 3 days ago. She was admitted on 02/09/2017, being transferred to Rehab today on 02/18/2017. An 81-year-old female with CHF, ICD who was brought in with possible syncope. She had UTI. She was treated with IV antibiotics. Physical therapy has been started. She has done well and now being transferred to Rehab. During hospitalization, she was seen by ID consultation, Dr. Naik. She is stable now. Care of plan was explained to the patient's family. FINAL DIAGNOSES: Urinary tract infection, near syncope and congestive heart failure. Anil Knowles MD
--- NOTE | 2017-02-20 14:01 | PQF CHF ---
This form is a permanent part of the medical record Dr. Ma, Please Clarify the type of CHF. Clarification of your documentation is requested to better reflect the severity of illness and intensity of treatment of your patient. Indicators present [] Diagnosis of CHF and/or history of CHF [] BNP > 200 [] Imaging Finding of Pulmonary Edema /Pleural Effusions [] Fluid/Volume Overload [] Pitting edema [] Ejection Fraction < 40% (Indicative of Systolic Heart Failure) [] Ejection Fraction > 40% (Indicative of Diastolic Heart Failure) [] Dyspnea / Orthopenea / Paroxysmal Nocturnal Dyspnea [] Other: Location in the medical record that reflects the above clinical findings: [] Treatment Provided: [] PHYSICIAN'S RESPONSE Based on your medical judgment of the clinical indicators outlined above, are you treating this patient for a known or suspected: [] Acute CHF [] Systolic [] Diastolic [] Combined [] Chronic CHF [] Systolic [] Diastolic [] Combined [] Acute on Chronic CHF []Systolic [] Diastolic [] Combined [] CHF due hypertension [] Acute systolic []Chronic systolic [] Acute/ chronic systolic [] Other, please indicate: [] [] If Unable to Determine, please check the box, sign and date. Present On Admission (POA) Indicator: [] Present at the time of admission [] Not present at the time of admission [] Clinically Undetermined In responding to this query, please exercise your independent professional judgment. The fact that a question is asked does not imply that any particular answer is desired or expected. Thank you for your clarification on this documentation. If you have any questions please call:[ ] * Thank you, [ ] photo specialist CARLOS
== END 2017-02-18 17:34 | DRG 689 ==
LOC: C.ER 10:56 → C.9E 13:53 → C.3T 15:01
PROVIDERS: ADMIT Internal Medicine Cardiovascular Disease; ATTEND Internal Medicine Cardiovascular Disease
DX: N39.0 Urinary tract infection, site not specified (principal); I11.0 Hypertensive heart disease with heart failure; I50.43 Acute on chronic combined systolic (congestive) and diastolic (congestive) heart failure; I27.20 Pulmonary hypertension, unspecified; I42.0 Dilated cardiomyopathy; I48.2 Chronic atrial fibrillation; F03.90 Unspecified dementia, unspecified severity, without behavioral disturbance, psychotic disturbance, mood disturbance, and anxiety; E86.0 Dehydration; M17.11 Unilateral primary osteoarthritis, right knee; Z79.01 Long term (current) use of anticoagulants; Z82.49 Family history of ischemic heart disease and other diseases of the circulatory system; Z95.810 Presence of automatic (implantable) cardiac defibrillator